=== PATIENT | male | born 2000 | race Caucasian/White ===

== ENCOUNTER 2019-01-08 10:33 | Emergency (ER) | payer OTHER ==
[2019-01-08 10:40] VITALS: BP 127/71
--- NOTE | 2019-01-08 11:29 | EDPHY ---
General - History Smoking Status: Current every day smoker Time Seen by Provider: 01/08/19 11:06 Narrative: CLINICAL IMPRESSION: Left hand laceration ASSESSMENT/PLAN: 18-year-old male presents with to the emergency department with acute laceration to the volar aspect of the left hand just proximal to the 1st MCP joint. Full range of motion, distal 2 point discrimination and neurovascular exam intact. Tetanus up-to-date. Sutures placed as per chart note below. Wound care discussed, sinus symptoms of infection reviewed, warning signs return to ED sooner discussed discharge. DIFFERENTIAL DIAGNOSIS: includes but not limited to laceration of tendon or vascular structure, underlying fracture, laceration with retained FB ED PROCEDURES: Laceration Repair Verbal consent obtained by patient. Risks discussed, including but not limited to infection, pain, retained foreign body, need for additional repair, poor cosmetic result, tendon damage, nerve damage, poor wound healing, vascular damage. Alternatives to repair discussed. [place] protocol used to establish correct patient, procedure, equipment, production support engineer, and site. Anesthesia obtained by local infiltration. Anesthetized with 1% lidocaine with epi. Laceration location left hand, length 1 cm, depth 2 mm, Repair type simple. Patient was prepped and draped in usual sterile fashion. Hemostasis achieved with direct pressure. Wound explored through full range of motion and entire depth of wound probed and visualized with gloved finger. No suspicion for nerve damage, tendon damage, underlying fracture, vascular damage, foreign body, or contamination. Area was cleansed with Shur-Clens and irrigated with sterile saline as per protocol. No foreign body or material removed. Repair method 5 0 Prolene simple interrupted sutures. Two sutures placed. Well aligned, closely approximated. wound was dressed with bacitracin Band-Aid. Patient tolerated well with no immediate complications. Wound care: Clean and dry x 24 hours, gently clean with soap and water, cover with topical antibiotic ointment/bandage. Suture/Staple removal: 7 Days CHIEF COMPLAINT: Laceration to left hand HPI: Right-hand dominant 18-year-old male presents to the emergency department with a laceration to the volar aspect of the left hand over the thumb. Patient sustained this on a piece of glass at work. He states this was a large piece of glass in there is no concern for foreign body. He has full range of motion of the finger, no sensory deficits. Tetanus is up-to-date. No other injuries. No significant past medical history REVIEW OF SYSTEMS: All other systems negative Constitutional: No fever, no chills Musculoskeletal: No deformity, no joint pain Skin: Laceration to left volar hand Neurological: No sensory loss or weakness, 2 point discrimination intact. PHYSICAL EXAM: General Appearance: Alert, oriented, appropriate for age, cooperative, NAD, well hydrated, non-toxic appearing, VSS, no hypoxia. Neurological: Alert and oriented x 3 Skin: 1 cm laceration to the volar aspect of the left hand just proximal to the 1st MCP joint. Musculoskeletal: Full range of motion of left hand, thumb and fingers, 2 point discrimination intact, no neurovascular deficits. MEDICAL DECISION MAKING: Patient was seen independently. Secondary supervising physician at time of evaluation was Dr Larson. Diagnosis: Left hand laceration. New, requires workup Summary: See assessment and plan for summary of ED visit Patient Progress stable for discharge. (Kalpesh Alonzo) Medical Decision Making: I did not see this patient while he was in the emergency department. However his care was discussed with the PA while the patient was in the department. I agree with treatment plan and management (Ayan Larson) - Objective Vital Signs: Initial Vital Signs Temperature (C) 36.8 C 01/08/19 10:39 Heart Rate 56 L 01/08/19 10:39 Respiratory Rate 16 01/08/19 10:39 Blood Pressure 127/71 H 01/08/19 10:39 O2 Sat (%) 97 01/08/19 10:39 O2 Delivery Mode Room Air Allergies/Adverse Reactions: No Known Allergies Allergy (Unverified 01/08/19 10:38) Home Medications: Medication Instructions Recorded NK [No Known Home Meds] 01/08/19 Departure - Departure Disposition: Home, Routine, Self-Care Clinical Impression: Laceration of hand Qualifiers: Encounter type: initial encounter Foreign body presence: without foreign body Laterality: left Qualified Code(s): S61.412A - Laceration without foreign body of left hand, initial encounter Condition: Good Instructions: Laceration (ED) Additional Instructions: DISCHARGE INSTRUCTIONS FROM YOUR DOCTOR Thank you for visiting our emergency department today. You were treated by a physician contact center assistant today and your case was reviewed with our ED Attending physician. Please keep in mind that discharge from the emergency department does not mean that there is nothing wrong - it simply means that we have not identified an emergency condition that requires further evaluation or treatment in the hospital. You should always plan to follow up with primary care for re- evaluation of your condition in the next 2-3 days. If you have been referred to a specialist, please call as soon as possible (today or tomorrow) to schedule your follow up appointment at the appropriate time. PLEASE HAVE SUTURES/CHICO REMOVED IN 7 DAYS. YOU CAN RETURN TO THE EMERGENCY DEPARTMENT OR YOUR PRIMARY CARE FOR SUTURE/STAPLE REMOVAL. AVOID SUBMERGING SUTURES/CHICO UNDERWATER FOR PROLONGED PERIOD OF TIME UNTIL REMOVED. KEEP WOUND CLEAN AND DRY, COVER WITH ANTIBIOTIC OINTMENT AND BAND-AID. RETURN TO EMERGENCY DEPARTMENT FOR REDNESS, SWELLING, DISCHARGE, WARMTH TO THE SKIN, OR ANY OTHER CONCERNS FOR INFECTION. People present with illnesses and injuries in different ways, and it is always possible that we have missed something. You may always return for re-evaluation if symptoms worsen or if they are not improving or if you develop new/different symptoms. Again, thank you for choosing our emergency department. We hope that you feel better. Referrals: NONE *PRIMARY CARE P,. [Primary Care Provider] - As per Instructions Juan A Alarcon MD [Medical Doctor] - 5-7 days, if not improved
== END 2019-01-08 11:35 | disposition home or self-care (01) ==
PROC: 0HQGXZZ Repair Left Hand Skin, External Approach (ICD-10-PCS; principal; 2019-01-08)
DX: S61.412A Laceration without foreign body of left hand, initial encounter (principal); W25.XXXA Contact with sharp glass, initial encounter; Y99.0 Civilian activity done for income or pay